=== PATIENT | female | born 1965 ===

== ENCOUNTER 2024-12-05 11:05 | Outpatient (CLI) | payer OTHER ==
[~2024-12-05 11:05] MED LIST: AMOX1TAB12 PO; GLUCOPHAGE XR500 MG; KETO10TA2 PO; LANTUS SOLOSTAR3 ML; ORPH100T PO
== END 2024-12-05 11:13 | disposition home or self-care (01) ==
LOC: RAD 11:05
DX: M25.561 Pain in right knee (principal)